=== PATIENT | male | born 1975 | race African-American/Black ===

== ENCOUNTER 2020-12-21 10:25 | Inpatient (IN) ==
--- NOTE | 2020-12-21 11:12 | XRay Report ---
XR chest 1V portable CLINICAL HISTORY: Stroke Like Symptoms COMPARISON STUDY: No previous studies for comparison. FINDINGS: Lung volumes are normal. Note is made of a 3.4 cm left suprahilar density There is no pneum othorax or pleural effusion. Cardiac size is normal. Mediastinal contours are normal. There is no jluis dence for pulmonary edema. IMPRESSION: 3.4 cm left suprahilar density. This likely reflects normal pulmonary vessels. However, nonemergent chest CT is recommended to exclude the less likely possibility of an underlying pulmonary lesion. ACT 112: Positive. There are findings on this exam that require communication between the performing entity and the patient following Patient Test Result Information Act ([place] Act 112) guidelines. Electronically signed by: Kvng Morales M.D. 12/21/2020 11:11 AM
[2020-12-21 11:16] LABS: Basophils # (auto) 0.04 K/uL (0-0.2); Basophils % (auto) 0.8 %; Eosinophils # (auto) 0.17 K/uL (0-0.5); Eosinophils % (auto) 3.2 %; Hematocrit (blood only) 38.8 % (42-52); Hemoglobin 13.1 g/dL (14.0-18.0); Immature Granulocytes # (auto) 0.01 K/uL (0.00-0.02); Immature Granulocytes % (auto) 0.2 %; Lymphocytes # (auto) 1.56 K/uL (1.2-3.4); Lymphocytes % (auto) 29.7 %; Mean Corpuscular Hgb Conc 33.8 g/dL (32-36); Mean Corpuscular Volume 88.8 fL (80-100); Mean Platelet Volume 10.4 fL (7.4-10.4); Monocytes # (auto) 0.29 K/uL (0.11-0.59); Monocytes % (auto) 5.5 %; Neutrophils # (auto) 3.18 K/uL (1.4-6.5); Neutrophils % (auto) 60.6 %; Platelet Count 242 K/uL (130-400); RDW Coefficient of Variation 13.2 % (11.5-14.5); RDW Standard Deviation 42.9 fL (36.4-46.3); Red Blood Count 4.37 M/uL (4.7-6.1); White Blood Count 5.25 K/uL (4.8-10.8)
[2020-12-21 11:26] LABS: Partial Thromboplastin Ratio 0.9; Partial Thromboplastin Time 22.8 Seconds (21.0-31.0); Prothrombin Time 10.1 Seconds (9.0-12.0)
[2020-12-21 11:31] LABS: Alanine Aminotransferase 60 U/L (12-78); Albumin Level 3.9 gm/dl (3.4-5.0); Aspartate Aminotransferase 36 U/L (15-37); BUN Creatinine Ratio 9.6 (10-20); Blood Urea Nitrogen 11 mg/dl (7-18); Calcium 9.5 mg/dl (8.5-10.1); Carbon Dioxide 27 mmol/L (21-32); Chloride 103 mmol/L (98-107); Creatinine Clr Calc Pharmacy 104.1 ml/min; Est GFR (African American) 90.8 ml/min; Est GFR (Non-African American) 78.4 ml/min; Glucose 85 mg/dl (70-99); Magnesium 2.1 mg/dl (1.8-2.4); Potassium 4.2 mmol/L (3.5-5.1); Sodium 137 mmol/L (136-145)
[2020-12-21 11:36] LABS: Albumin Globulin Ratio 0.9 (0.9-2); Alkaline Phosphatase 70 U/L (45-117); Bilirubin,Total 0.7 mg/dl (0.2-1); Globulin 4.1 gm/dl (2.5-4.0); Troponin I < 0.015 ng/ml (0-0.045)
[2020-12-21] MEDS ORDERED: OPTIRAY 350 500ml IV ONE (12:21)
[2020-12-21] MEDS ORDERED: ASPIRIN CHEW 324 MG PO STA (12:36)
--- NOTE | 2020-12-21 12:45 | Electrocardiogram Report ---
Test Reason : Blood Pressure : / mmHG Vent. Rate : 056 BPM Atrial Rate : 056 BPM P-R Int : 184 ms QRS Dur : 086 ms QT Int : 416 ms P-R-T Axes : 080 078 075 degrees QTc Int : 401 ms Sinus bradycardia Otherwise normal ECG When compared with ECG of 04-NOV-2020 16:17, No significant change was found Confirmed by Chang Matthews ([id number]) on 12/21/2020 12:45:12 PM Referred By: REFERRED SELF Confirmed By:Alfonso Matthews
--- NOTE | 2020-12-21 12:55 | CT Scan Report ---
UNENHANCED CT OF THE BRAIN; CT ANGIOGRAM OF THE BRAIN; CT ANGIOGRAM OF THE NECK CLINICAL HISTORY: Strokelike symptoms. COMPARISON STUDY: CT of the brain dated 11/04/2020. TECHNIQUE: Unenhanced axial CT scan of the brain is performed. Subsequently, following the IV adminis tration of 120 of [address] 350, CT angiogram of the head and neck was performed from the aortic arch t o the vertex. Images are reviewed in the axial, sagittal, and coronal planes. 3-D MIPS images are cre ated and assessed. IV contrast was administered without complication. All measurements were calculate d based on NASCET criteria. A dose lowering technique was utilized adhering to the principles of ALA RA. CT DOSE: 1109.62 mGy.cm FINDINGS: Brain parenchyma: There is a large subacute infarct identified in the left MCA territory with mild fagan rrounding edema, predominantly involving the temporal lobe. Focal hyperdense thrombus is suggested wi thin a branch of the left MCA on unenhanced axial image #12. No hemorrhage or midline shift is identi fied. No additional foci of ischemia are identified by CT criteria. There is no evidence of enhancing mass lesion on the angiogram phase images. The ventricles, sulci, and cisterns are normal in configu ration. No extra-axial fluid collection is seen. Thoracic aorta: Visualized portions of the thoracic aorta are normal in caliber. The aortic arch demo nstrates standard 3-vessel anatomy. Right carotid arterial system: The right common carotid artery is widely patent, as are the right int ernal and external carotid arteries. Left carotid arterial system: The left common carotid artery is widely patent, as are the left human resource internship al and external carotid arteries. Vertebral arteries: The vertebral arteries are patent bilaterally noting a right-sided dominance. Subclavian arteries: Widely patent bilaterally. Intracranial vasculature: There are large bilateral posterior communicating arteries. The internal ca rotid arteries are patent at the skull base, as are the bilateral anterior and right middle cerebral arteries the proximal right middle cerebral arteries patent. 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 The remaining branch es of the left middle cervical arteries are patent. The vertebrobasilar system and posterior cerebral arteries are widely patent. The right vertebral artery is dominant. The left vertebral artery is dim inutive. No aneurysm is seen. Jugular veins: Patent bilaterally. Dural sinuses: Patent. Lung apices: Partially visualized upper lobe lung parenchyma appears clear. Soft tissues: The visualized pharyngeal soft tissues are normal in appearance noting angiographic pha se technique. The oropharyngeal airway appears widely patent. The salivary and thyroid glands are nor mal in appearance. No cervical lymphadenopathy is seen. Skeletal structures: The calvarium appears intact. The cervical spine is within normal limits. No lyt ic or blastic lesion is seen. Sinuses and mastoids: There is trace mucosal thickening within the ethmoid sinuses. The remaining par anasal sinuses are clear. The mastoid air cells are well pneumatized. Cerumen is noted in the externa l auditory canals. IMPRESSION: 1. There is a large subacute left MCA territory infarct as above, predominantly involving the tempora l lobe. 2. No hemorrhage or midline shift is identified. 3. No additional foci of acute ischemia are identified by CT criteria. 4. There is thrombosis of a large branch of the left MCA in the left temporal lobe along the sylvian fissure. 5. Otherwise unremarkable CT angiogram of the brain. 6. Unremarkable CT angiogram of the neck. Findings were discussed with Dr. Sidhu in the emergency department at the time of interpretation. ACT 112: Negative or not required by law. Electronically signed by: Scott Ron M.D. 12/21/2020 12:54 PM
--- NOTE | 2020-12-21 13:24 | History & Physical Report ---
Date of Service December 21, 2020 Assessment & Plan (1) CVA (cerebrovascular accident): Large left MCA stroke - Not candidate for therapy as unsure of onset and stroke completed. Known CVA as of - [place] [facility] [place]- supportive care - Repeat MRI brain - Consult neurology placed- reviewed with Dr. Pandya - contreras screen- passed - ECHO- pending - BP will follow - Will add Keppra on for seizure prophylaxis with size of injury as well as unsure of this is what caused him to "fall" or "fall out", either way large injury in temporal lobe - PT/OT - ASA daily - statin daily (2) Abnormal chest xray: Will follow up with CT scan of the chest - 7mm lung nodule noted (3) Pulmonary nodule: as above, ? etiology and history History of Present Illness Primary Care Provider: CARMINA Wei 45 YOM with no known medical history documented. Patient was brought in today after "falling out" this morning, guards are unsure if he lost consciousness or not. The patient had a fall about 2 weeks ago where he hit the right side of his head above his eyebrow, he was subsequently taken to [facility] radiology center and had an MRI done on 12/10/2020. This exam revealed a subacute/early chronic infarct left temporoparietal junction and mild cortical enhancement. Thre is no further record of treatment available. The patient is awake and alert, he is oriented to person and place. He is disoriented to time. His responses are the same and repeating to "just this" or "this and that". He is unable to recall what he did this morning or yesterday. He apparently remains in general population without getting lost or reporting any deficits or needing care. Patient is not a candidate for tPA secondary to time of initial event ~2weeks ago and is not an interventional candidate secondary to completed stroke. Patient will be admitted for further work up, will be started on Keppra 1000mg BID and transition to PO when able. EEG in morning. Aspirin given in the EMD, will continue daily. MRI of the brain will be obtained evaluate ongoing process, CT of the chest to evaluate findings on CXR, telemetry and ECHO for evaluation of embolic risks. Patient is unable to provide any family, medical, or social history. 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 Allergies Allergy/AdvReac Type Severity Reaction Status Date / Time No Known Allergies Allergy Unverified 12/21/20 10:51 Home Medications Medication Instructions Recorded Confirmed Type aspirin 325 mg PO DAILY 12/21/20 12/21/20 History Past Med/Surg History Medical History (Updated 12/22/20 @ 08:44 by Williams Pandya MD) Abnormal chest xray No pertinent past medical history No pertinent past medical history Surgical History (Updated 12/22/20 @ 11:29 by Darvin Du) No pertinent past surgical history Family History (Updated 12/22/20 @ 11:29 by Darvin Du) Other Unknown family medical history Social History (Updated 12/22/20 @ 11:29 by Darvin Du) Smoking Status: Never smoker Hx Alcohol Use: No Hx Substance Use: No (specifically denied cocaine use or other street drugs ) [employer] Required: No Beliefs That Will Affect Care: None Current Living Situation: Other Current Living Situation Comment: Correctional facility Other Information That Helps Us Care for You: No Feels Safe at Home: Yes Safety Concerns: Feels Safe At This Time Assistive Devices: None Review of Systems Review of Systems: REVIEW OF SYSTEMS: Systems reviewed- patient responses are unlikely accurate most of the time. Constitutional: No fever, sweats or chills Eyes: No diplopia, no worsening or blurred vision ENT: normal hearing, no trouble swallowing Respiratory: No cough, sputum, dyspnea at rest or on exertion Cardiovascular: No chest pain, tightness or palpitations Abdomen: No pain, nausea, vomiting, diarrhea or constipation Musculoskeletal:(+) pain to right above eye, No joint pain, calf pain, swelling Neurologic: No weakness, numbness/tingling, or balance problems Psychiatric: No anxiety or depression Skin: No rash or itch Physical Exam Physical Exam: PHYSICAL EXAM: General: awake, alert, no apparent distress Head: Normocephalic, atraumatic ENT: PERRL, EOMI, no pharyngeal exudate, mucous membranes moist Neuro: NIHSS- 6, patient alert to person and place, follows commands, PEERLA denies vision change and peripheral vision appears intact, no facial asymmetry, no limb weakness or ataxia, sensation to left lower leg decreased(patient says right leg for sensation on left leg or does not flinch with pinching), he is unable to say any of the words from the NIHSS, he is unable to articulate the events in the pictures, nor is he able to name any of the objects. These events come out as garble intelligible words or everything is called a vacuum. He is able to write his name and read his name, but is unable to read other written words. Chest: equal rise and fall of the chest, no accessory muscle use, no heaves or thrills, Clear to auscultation, on room air, Cardiac: Regular rate and rhythm, telemetry reviewed, skin warm dry, cap refill <3 seconds, peripheral pulses +2 no JVD, no murmur, no edema GI: NABS x 4 quadrants, soft, nontender to palpation, no rebound, guarding or tenderness : Spontaneously voiding, no pain, no CVA tenderness, Extremities: Normal inspection, no peripheral edema or erythema, calfs nont gene to palpation Psych: Normal mood and affect Skin: no rash or erythema Results & Data Results & Data ([facility]) Vital Signs (Past 12 Hours) Vital Signs Temp Pulse Resp BP Pulse Ox 12/21/20 13:01 72 18 90 12/21/20 13:00 69 23 156/91 H 97 12/21/20 12:44 62 13 99 12/21/20 12:43 61 23 149/90 H 100 12/21/20 12:01 56 L 13 12/21/20 12:00 62 13 128/84 12/21/20 11:31 57 L 16 12/21/20 11:30 56 L 17 125/80 12/21/20 11:06 66 19 12/21/20 11:05 56 L 14 142/95 H 12/21/20 10:33 37.0 C 79 18 136/104 H 99 Laboratory Results Abnormal lab results 12/21/20 12/21/20 12/21/20 Range/Units 11:00 11:00 11:00 RBC 4.37 L (4.7-6.1) M/uL Hgb 13.1 L (14.0-18.0) g/dL Hct 38.8 L (42-52) % BUN/Creatinine Ratio 9.6 L (10-20) POC Glucose 102 H (70-99) mg/dl Globulin 4.1 H (2.5-4.0) gm/dl Diagnostic Findings Chest X-Ray 12/21/20 10:39 XR chest 1V portable CLINICAL HISTORY: Stroke Like Symptoms COMPARISON STUDY: No previous studies for comparison. FINDINGS: Lung volumes are normal. Note is made of a 3.4 cm left suprahilar density There is no pneumothorax or pleural effusion. Cardiac size is normal. Mediastinal contours are normal. There is no evidence for pulmonary edema. IMPRESSION: 3.4 cm left suprahilar density. This likely reflects normal pulmonary vessels. However, nonemergent chest CT is recommended to exclude the less likely possibility of an underlying pulmonary lesion. Electronically signed by: Kvng Morales M.D. 12/21/2020 11:[address] 12/21/20 10:[address] OF THE BRAIN; CT ANGIOGRAM OF THE BRAIN; CT ANGIOGRAM OF THE NECK CLINICAL HISTORY: Strokelike symptoms. COMPARISON STUDY: CT of the brain dated 11/04/2020. TECHNIQUE: Unenhanced axial CT scan of the brain is performed. Subsequently, following the IV administration of 120 of Optiray 350, CT angiogram of the head and neck was performed from the aortic arch to the vertex. Images are reviewed in the axial, sagittal, and coronal planes. 3-D MIPS images are created and assessed. IV contrast was administered without complication. All measurements were calculated based on NASCET criteria. A dose lowering technique was utilized adhering to the principles of ALARA. CT DOSE: 1109.62 mGy.cm FINDINGS: Brain parenchyma: There is a large subacute infarct identified in the left MCA territory with mild surrounding edema, predominantly involving the temporal lobe. Focal hyperdense thrombus is suggested within a branch of the left MCA on unenhanced axial image #12. No hemorrhage or midline shift is identified. No additional foci of ischemia are identified by CT criteria. There is no evidence of enhancing mass lesion on the angiogram phase images. The ventricles, sulci, and cisterns are normal in configuration. No extra-axial fluid collection is seen. Thoracic aorta: Visualized portions of the thoracic aorta are normal in caliber. The aortic arch demonstrates standard 3-vessel anatomy. Right carotid arterial system: The right common carotid artery is widely patent, as are the right internal and external carotid arteries. Left carotid arterial system: The left common carotid artery is widely patent, as are the left internal and external carotid arteries. Vertebral arteries: The vertebral arteries are patent bilaterally noting a right-sided dominance. Subclavian arteries: Widely patent bilaterally. Intracranial vasculature: There are large bilateral posterior communicating arteries. The internal carotid arteries are patent at the skull base, as are the bilateral anterior and right middle cerebral arteries the proximal right middle cerebral arteries patent. 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 The remaining branches of the left middle cervical arteries are patent. The vertebrobasilar system and posterior cerebral arteries are widely patent. The right vertebral artery is dominant. The left vertebral artery is diminutive. No aneurysm is seen. Jugular veins: Patent bilaterally. Dural sinuses: Patent. Lung apices: Partially visualized upper lobe lung parenchyma appears clear. Soft tissues: The visualized pharyngeal soft tissues are normal in appearance noting angiographic phase technique. The oropharyngeal airway appears widely patent. The salivary and thyroid glands are normal in appearance. No cervical lymphadenopathy is seen. Skeletal structures: The calvarium appears intact. The cervical spine is within normal limits. No lytic or blastic lesion is seen. Sinuses and mastoids: There is trace mucosal thickening within the ethmoid sinuses. The remaining paranasal sinuses are clear. The mastoid air cells are well pneumatized. Cerumen is noted in the external auditory canals. IMPRESSION: 1. There is a large subacute left MCA territory infarct as above, predominantly involving the temporal lobe. 2. No hemorrhage or midline shift is identified. 3. No additional foci of acute ischemia are identified by CT criteria. 4. There is thrombosis of a large branch of the left MCA in the left temporal lobe along the sylvian fissure. 5. Otherwise unremarkable CT angiogram of the brain. 6. Unremarkable CT angiogram of the neck. Findings were discussed with Dr. Sidhu in the emergency department at the time of interpretation. Electronically signed by: Scott Ron M.D. 12/21/2020 12:54 PM Head CTA 12/21/20 10:[address] OF THE BRAIN; CT ANGIOGRAM OF THE BRAIN; CT ANGIOGRAM OF THE NECK CLINICAL HISTORY: Strokelike symptoms. COMPARISON STUDY: CT of the brain dated 11/04/2020. TECHNIQUE: Unenhanced axial CT scan of the brain is performed. Subsequently, following the IV administration of 120 of Optiray 350, CT angiogram of the head and neck was performed from the aortic arch to the vertex. Images are reviewed in the axial, sagittal, and coronal planes. 3-D MIPS images are created and assessed. IV contrast was administered without complication. All measurements were calculated based on NASCET criteria. A dose lowering technique was utilized adhering to the principles of ALARA. CT DOSE: 1109.62 mGy.cm FINDINGS: Brain parenchyma: There is a large subacute infarct identified in the left MCA territory with mild surrounding edema, predominantly involving the temporal lobe. Focal hyperdense thrombus is suggested within a branch of the left MCA on unenhanced axial image #12. No hemorrhage or midline shift is identified. No additional foci of ischemia are identified by CT criteria. There is no evidence of enhancing mass lesion on the angiogram phase images. The ventricles, sulci, and cisterns are normal in configuration. No extra-axial fluid collection is seen. Thoracic aorta: Visualized portions of the thoracic aorta are normal in caliber. The aortic arch demonstrates standard 3-vessel anatomy. Right carotid arterial system: The right common carotid artery is widely patent, as are the right internal and external carotid arteries. Left carotid arterial system: The left common carotid artery is widely patent, as are the left internal and external carotid arteries. Vertebral arteries: The vertebral arteries are patent bilaterally noting a right-sided dominance. Subclavian arteries: Widely patent bilaterally. Intracranial vasculature: There are large bilateral posterior communicating arteries. The internal carotid arteries are patent at the skull base, as are the bilateral anterior and right middle cerebral arteries the proximal right middle cerebral arteries patent. 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 The remaining branches of the left middle cervical arteries are patent. The vertebrobasilar system and posterior cerebral arteries are widely patent. The right vertebral artery is dominant. The left vertebral artery is diminutive. No aneurysm is seen. Jugular veins: Patent bilaterally. Dural sinuses: Patent. Lung apices: Partially visualized upper lobe lung parenchyma appears clear. Soft tissues: The visualized pharyngeal soft tissues are normal in appearance noting angiographic phase technique. The oropharyngeal airway appears widely patent. The salivary and thyroid glands are normal in appearance. No cervical lymphadenopathy is seen. Skeletal structures: The calvarium appears intact. The cervical spine is within normal limits. No lytic or blastic lesion is seen. Sinuses and mastoids: There is trace mucosal thickening within the ethmoid sinuses. The remaining paranasal sinuses are clear. The mastoid air cells are well pneumatized. Cerumen is noted in the external auditory canals. IMPRESSION: 1. There is a large subacute left MCA territory infarct as above, predominantly involving the temporal lobe. 2. No hemorrhage or midline shift is identified. 3. No additional foci of acute ischemia are identified by CT criteria. 4. There is thrombosis of a large branch of the left MCA in the left temporal lobe along the sylvian fissure. 5. Otherwise unremarkable CT angiogram of the brain. 6. Unremarkable CT angiogram of the neck. Findings were discussed with Dr. Sidhu in the emergency department at the time of interpretation. ACT 112: Negative or not required by law. Electronically signed by: Scott Ron M.D. 12/21/2020 12:54 PM Neck CTA 12/21/20 10:[address] OF THE BRAIN; CT ANGIOGRAM OF THE BRAIN; CT ANGIOGRAM OF THE NECK CLINICAL HISTORY: Strokelike symptoms. COMPARISON STUDY: CT of the brain dated 11/04/2020. TECHNIQUE: Unenhanced axial CT scan of the brain is performed. Subsequently, following the IV administration of 120 of Optiray 350, CT angiogram of the head and neck was performed from the aortic arch to the vertex. Images are reviewed in the axial, sagittal, and coronal planes. 3-D MIPS images are created and assessed. IV contrast was administered without complication. All measurements were calculated based on NASCET criteria. A dose lowering technique was utilized adhering to the principles of ALARA. CT DOSE: 1109.62 mGy.cm FINDINGS: Brain parenchyma: There is a large subacute infarct identified in the left MCA territory with mild surrounding edema, predominantly involving the temporal lobe. Focal hyperdense thrombus is suggested within a branch of the left MCA on unenhanced axial image #12. No hemorrhage or midline shift is identified. No additional foci of ischemia are identified by CT criteria. There is no evidence of enhancing mass lesion on the angiogram phase images. The ventricles, sulci, and cisterns are normal in configuration. No extra-axial fluid collection is seen. Thoracic aorta: Visualized portions of the thoracic aorta are normal in caliber. The aortic arch demonstrates standard 3-vessel anatomy. Right carotid arterial system: The right common carotid artery is widely patent, as are the right internal and external carotid arteries. Left carotid arterial system: The left common carotid artery is widely patent, as are the left internal and external carotid arteries. Vertebral arteries: The vertebral arteries are patent bilaterally noting a right-sided dominance. Subclavian arteries: Widely patent bilaterally. Intracranial vasculature: There are large bilateral posterior communicating arteries. The internal carotid arteries are patent at the skull base, as are the bilateral anterior and right middle cerebral arteries the proximal right middle cerebral arteries patent. 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 The remaining branches of the left middle cervical arteries are patent. The vertebrobasilar system and posterior cerebral arteries are widely patent. The right vertebral artery is dominant. The left vertebral artery is diminutive. No aneurysm is seen. Jugular veins: Patent bilaterally. Dural sinuses: Patent. Lung apices: Partially visualized upper lobe lung parenchyma appears clear. Soft tissues: The visualized pharyngeal soft tissues are normal in appearance noting angiographic phase technique. The oropharyngeal airway appears widely patent. The salivary and thyroid glands are normal in appearance. No cervical lymphadenopathy is seen. Skeletal structures: The calvarium appears intact. The cervical spine is within normal limits. No lytic or blastic lesion is seen. Sinuses and mastoids: There is trace mucosal thickening within the ethmoid sinuses. The remaining paranasal sinuses are clear. The mastoid air cells are well pneumatized. Cerumen is noted in the external auditory canals. IMPRESSION: 1. There is a large subacute left MCA territory infarct as above, predominantly involving the temporal lobe. 2. No hemorrhage or midline shift is identified. 3. No additional foci of acute ischemia are identified by CT criteria. 4. There is thrombosis of a large branch of the left MCA in the left temporal lobe along the sylvian fissure. 5. Otherwise unremarkable CT angiogram of the brain. 6. Unremarkable CT angiogram of the neck. Findings were discussed with Dr. Sidhu in the emergency department at the time of interpretation. Electronically signed by: Scott Ron M.D. 12/21/2020 12:54 PM Brain MRI 12/21/20 15:34 MRI OF THE BRAIN WITHOUT CONTRAST CLINICAL HISTORY: L MCA territory CVA COMPARISON STUDY: None. FINDINGS: Sagittal T1, axial diffusion, proton density and T2 weighted axial, coronal FLAIR, and axial T1-weighted images were acquired. There is large heterogeneous lesion involving left frontal and temporal region which shows no evidence of restricted diffusion, no mass effect on adjacent brain structures and curvilinear areas of high T1 signal and cortical thinning. Axial diffusion-weighted images reveal no evidence of acute or subacute infarction. Multiple areas of increased signal on DWI sequence also shows high signal on ACT map representing shine through phenomenon. There is no evidence of ventricular dilatation. Orbits and visualized paranasal sinuses are unremarkable. IMPRESSION: 1. No evidence of restricted diffusion to suggest acute ischemia/infarct. 2. Large heterogeneous area of altered T1 and T2 signal is seen within left frontal and occipital lobe with associated cortical atrophy and curvilinear areas of increased T1 signal likely representing sequela from prior/recent infarct/hemorrhage. Neoplastic etiology/mass lesion is less likely due to absence of the mass effect, however if there is clinical concern for metastatic/neoplastic lesion, follow-up evaluation might be considered. Electronically signed by: Roxanne Peterson DO 12/21/2020 5:[address] 12/21/20 15:34 CT chest diagnostic wo con CLINICAL HISTORY: evaluate hypodensity to left chest COMPARISON STUDY: No previous studies for comparison. CT DOSE: 629.12 mGycm TECHNIQUE: CT of the thorax was performed from the thoracic inlet to the lung bases. Images are reviewed in the axial, sagittal, and coronal planes. IV contrast was not administered for this examination. A dose lowering technique was utilized adhering to the principles of ALARA. FINDINGS: There is no axillary, supra clavicle or internal mammary lymphadenopathy seen. Mediastinal lymph nodes are not enlarged. Minimal soft tissue prominence and 0.7 cm nodule within anterior mediastinum could represent thymic remnants versus other etiology (/101) Thyroid: Imaged portions of the thyroid gland are normal in appearance. Thoracic aorta: The thoracic aorta is normal in course and caliber, noting standard 3 vessel arch anatomy. Heart: The heart is normal in size and configuration, without pericardial effusion. Lungs and pleural spaces: Tracheobronchial tree is patent. No infiltrates or consolidative lesions are seen. No pleural effusion demonstrated. -7 mm pulmonary nodule is seen adjacent to the major fissure on the left (4/157) Upper abdomen: Partially visualized upper abdominal viscera is within normal limits. Skeletal structures: Minimal degenerative changes of the spine. IMPRESSION: 1. No infiltrates or consolidative lesions are seen. 2. 7 mm pulmonary nodule adjacent to the left major fissure. Short-term follow- up in 6 months is recommended per Fleischner Society guidelines. 3. Soft tissue/nodular appearance within the anterior mediastinum, most likely representing thymic remnant, however other etiology is also possible. Please correlate above-mentioned findings was prior history of thymic/anterior mediastinal abnormalities. Attention on follow-up imaging. Please refer to below summary of Fleischner criteria recommendations for follow- up of incidental CT nodules (Kamila Queen, Guidelines for management of small pulmonary nodules detected on CT scans: A statement from the Fleischner Society, Radiology 237: [phone].) SOLID NODULES Solitary nodule size: <6 mm * low risk patients: no follow-up needed * high risk patients: optional CT at 12 months Solitary nodule size: 6-8 mm * low risk patients: follow-up at 6-12 months, then consider further follow-up at 18-24 months * high risk patients: initial follow-up CT at 6-12 months and then at 18-24 months if no change Solitary nodule size: >8 mm * either low or high risk patients - consider follow-up CT at 3 months, and/or CT-PET, and/or biopsy Multiple nodules size: <6 mm * low risk patients: no routine follow-up * high risk patients: optional CT at 12 months Multiple nodules size: 6-8 mm * low risk patients: follow-up at 3-6 months, then consider further follow-up at 18-24 months * high risk patients: follow-up at 3-6 months, then at 18-24 months if no change Multiple nodules size: >8 mm * low risk patients: follow-up at 3-6 months, then consider further follow-up at 18-24 months * high risk patients: follow-up at 3-6 months, then at 18-24 months if no change Note: newly detected indeterminate nodule in persons 35 years of age or older. * low risk patients: minimal or absent history of smoking and/or other known risk factors * high risk patients: history of smoking or of other known risk factors (e.g. first degree relative with lung cancer, or exposure to asbestos, radon, uranium) * if a nodule up to 8 mm is partly solid or is ground glass further follow-up is required after 24 months to exclude possible slow growing adenocarcinoma ([facility]NAH) SUBSOLID NODULES Solitary pure ground-glass nodule * nodule size <6 mm - no CT follow-up required * nodule size >=6 mm - follow-up CT at 6-12 months, then every 2 years until 5 years Solitary part-solid nodule * nodule size <6 mm - no CT follow-up required * nodule size >=6 mm - follow-up CT at 3-6 months. If unchanged, and solid component remains <6 mm, then annual follow-up for 5 years Multiple subsolid nodules * nodule size <6 mm - follow-up CT at 3-6 months, consider further follow-up at 2 and 4 years if stable * nodule size >=6 mm - follow-up CT at 3-6 months, subsequent management based on the most suspicious nodule(s) Electronically signed by: Roxanne Peterson DO 12/21/2020 4:52 PM Medications Administered Sodium Chloride (Nss 1000ml) 1,000 mls @ 100 mls/hr IV .Q10H [facility] Stop: 01/20/21 15:33 Last Admin: 12/21/20 17:31 Dose: 100 mls/hr Documented by: [id number] Levetiracetam 1,000 mg/ Sodium (Chloride) 110 mls @ 440 mls/hr IV Q12 [facility] Stop: 01/20/21 20:59 Last Infusion: 12/21/20 20:04 Dose: 0 mls/hr Documented by: [id number] Admin: 12/21/20 19:38 Dose: 440 mls/hr Documented by: [id number] Discontinued Medications Aspirin (Aspirin Chew 324 Mg) 324 mg PO NOW STA Stop: 12/21/20 12:37 Last Admin: 12/21/20 12:47 Dose: 324 mg Documented by: [id number] Ioversol (Optiray 350 500ml) 120 ml IV ONCE ONE Stop: 12/21/20 12:22 Last Admin: 12/21/20 12:22 Dose: 120 ml Documented by: [id number] Code Status & VTE Plan Code Status CODE: FULL VTE: SCD's, Lovenox 40mg SQ daily VTE Prophylaxis Plan VTE Prophylaxis will be ordered: Yes Supervising Physician Co-Signing Physician Notes Attending Attestation & Admit Note - Pt seen/examined, chart reviewed, admission care plan d/w LAM Baker. I agree w/ the enciso components of his documentation. 45yo AA male - no PMH - presents from [facility] after being found on the ground in the cell block. Unwitnessed, therefore there is uncertainty if he passed out, had a seizure, etc. Patient was confused during the visit - stated it was March 02. He was a poor historian. Did state that 2 weeks ago when he had his MRI he also passed out then. States he "gets a pain there" (points to his right supraorbital region) and then "goes blank." He cannot elaborate further. He did have the same pain over the right eye again today. He does have a laceration above the right eye with sutures in place - uncertain where or when this was repaired. MRI head from 611 MRI performed on 12/10/20 showed a left sided frontal-temporal stroke. it appeared subacute or chronic. CTA head/neck today shows left-sided MCA thrombus. The guards who were present at bedside today state he has been confused in the ER today. They also saw him 2 weeks ago when he needed his MRI brain and they confirm he was confused/lethargic at that time. PMH/PSH/allergies/meds/sochx/famhx - reviewed gen - NAD head - tiny lac supraorbital region on right with intact sutures eyes - no nystagmus mouth - ?tongue bite rani, mid-tongue on right heart - RRR, s1 s2 lungs - CTA b/l abd - soft neuro - hyper-reflexic TIMOTHY ORTIZ wnl; right leg and left leg reflexes 2+; mixed aphasia - difficulty following commands, some expressive aphasia as well; no facial droop; strength 5/5 x 4 exts labs reviewed imaging reviewed A/P: 1. syncope vs seizure; favor latter. If seizure is present it would be secondary to his left-sided fronto-temporal stroke. Keppra BID prophylactically. EEG. Neuro consult. 2. subacute vs chronic left-sided MCA territory stroke - embolic?? Tele. Echo. Neuro, PT, OT, speech consults. asa/statin. lipids. If w/u is negative - consider 30-day event monitor or loop recorder. Consider hypercoagulable w/u. Also had J [employer] COVID vaccine recently - could this have contributed to stroke ?? 3. pulmonary nodule - CT chest, r/o lung ca. If a mass is present that could have set him up for stroke due to hypercoagulable state. This is a very unusual case. Darvin Du MD PG Care Time/CCT Total # of Minutes Spent Total Time Spent with Patient: Total time spent is greater than 50% in coordination of care (as documented) at patient's floor/unit and/or counseling patient: Coding Level of Care Code 23869 Initial Inpt Care Lvl 3 Diagnoses CVA (cerebrovascular accident) I63.312 CVA mechanism: thrombosis Laterality of affected vessel: left Precerebral and cerebral artery: middle cerebral artery Abnormal chest xray R93.89 Pulmonary nodule R91.1 (1) CVA (cerebrovascular accident) CVA mechanism: thrombosis Laterality of affected vessel: left Precerebral and cerebral artery: middle cerebral artery Qualified Code(s): I63.312 - Cerebral infarction due to thrombosis of left middle cerebral artery
[2020-12-21] MEDS ORDERED: levETIRAcetam 1,000 MG in 0.9 % SODIUM CHLORIDE 100 ML IV ONE (15:00)
[2020-12-21] MEDS ORDERED: PHARMACIST DISCHARGE MED REC CONSULT PRN (15:34)
[2020-12-21] MEDS ORDERED: ONDANSETRON INJ 2 MG/ML 2 ML VIAL IV PRN (15:34)
--- NOTE | 2020-12-21 16:53 | CT Scan Report ---
CT chest diagnostic wo con CLINICAL HISTORY: evaluate hypodensity to left chest COMPARISON STUDY: No previous studies for comparison. CT DOSE: 629.12 mGycm TECHNIQUE: CT of the thorax was performed from the thoracic inlet to the lung bases. Images are revi ewed in the axial, sagittal, and coronal planes. IV contrast was not administered for this examinatio n. A dose lowering technique was utilized adhering to the principles of ALARA. FINDINGS: There is no axillary, supra clavicle or internal mammary lymphadenopathy seen. Mediastinal lymph node s are not enlarged. Minimal soft tissue prominence and 0.7 cm nodule within anterior mediastinum could represent thymic r emnants versus other etiology (4/101) Thyroid: Imaged portions of the thyroid gland are normal in appearance. Thoracic aorta: The thoracic aorta is normal in course and caliber, noting standard 3 vessel arch ashok susan. Heart: The heart is normal in size and configuration, without pericardial effusion. Lungs and pleural spaces: Tracheobronchial tree is patent. No infiltrates or consolidative lesions are seen. No pleural effusion demonstrated. -7 mm pulmonary nodule is seen adjacent to the major fissure on the left (4/157) Upper abdomen: Partially visualized upper abdominal viscera is within normal limits. Skeletal structures: Minimal degenerative changes of the spine. IMPRESSION: 1. No infiltrates or consolidative lesions are seen. 2. 7 mm pulmonary nodule adjacent to the left major fissure. Short-term follow-up in 6 months is rec ommended per Fleischner Society guidelines. 3. Soft tissue/nodular appearance within the anterior mediastinum, most likely representing thymic r emnant, however other etiology is also possible. Please correlate above-mentioned findings was prior history of thymic/anterior mediastinal abnormalities. Attention on follow-up imaging. Please refer to below summary of Fleischner criteria recommendations for follow-up of incidental CT n odules (Kamila Queen, Guidelines for management of small pulmonary nodules detected on CT scans: A sta tement from the Fleischner Society, Radiology 237: [phone].) SOLID NODULES Solitary nodule size: <6 mm * low risk patients: no follow-up needed * high risk patients: optional CT at 12 months Solitary nodule size: 6-8 mm * low risk patients: follow-up at 6-12 months, then consider further follow-up at 18-24 months * high risk patients: initial follow-up CT at 6-12 months and then at 18-24 months if no change Solitary nodule size: >8 mm * either low or high risk patients - consider follow-up CT at 3 months, and/or CT-PET, and/or biopsy Multiple nodules size: <6 mm * low risk patients: no routine follow-up * high risk patients: optional CT at 12 months Multiple nodules size: 6-8 mm * low risk patients: follow-up at 3-6 months, then consider further follow-up at 18-24 months * high risk patients: follow-up at 3-6 months, then at 18-24 months if no change Multiple nodules size: >8 mm * low risk patients: follow-up at 3-6 months, then consider further follow-up at 18-24 months * high risk patients: follow-up at 3-6 months, then at 18-24 months if no change Note: newly detected indeterminate nodule in persons 35 years of age or older. * low risk patients: minimal or absent history of smoking and/or other known risk factors * high risk patients: history of smoking or of other known risk factors (e.g. first degree relative with lung cancer, or exposure to asbestos, radon, uranium) * if a nodule up to 8 mm is partly solid or is ground glass further follow-up is required after 24 m onths to exclude possible slow growing adenocarcinoma (SUSANNAH) SUBSOLID NODULES Solitary pure ground-glass nodule * nodule size <6 mm - no CT follow-up required * nodule size >=6 mm - follow-up CT at 6-12 months, then every 2 years until 5 years Solitary part-solid nodule * nodule size <6 mm - no CT follow-up required * nodule size >=6 mm - follow-up CT at 3-6 months. If unchanged, and solid component remains <6 mm, then annual follow-up for 5 years Multiple subsolid nodules * nodule size <6 mm - follow-up CT at 3-6 months, consider further follow-up at 2 and 4 years if sta ble * nodule size >=6 mm - follow-up CT at 3-6 months, subsequent management based on the most suspiciou s nodule(s) ACT 112: Positive. There are findings on this exam that require communication between the performing entity and the patient following Patient Test Result Information Act ([place] Act 112) guidelines. The above report was generated using voice recognition software. It may contain grammatical, syntax o r spelling errors. Electronically signed by: Roxanne Peterson DO 12/21/2020 4:52 PM
[2020-12-21] MEDS: SODIUM CHLORIDE 0.9% 1000ML 1,000 ML IV SCH (17:31)
--- NOTE | 2020-12-21 17:48 | Magnetic Resonance Report ---
MRI OF THE BRAIN WITHOUT CONTRAST CLINICAL HISTORY: L MCA territory CVA COMPARISON STUDY: None. FINDINGS: Sagittal T1, axial diffusion, proton density and T2 weighted axial, coronal FLAIR, and axial T1-weigh reji images were acquired. There is large heterogeneous lesion involving left frontal and temporal region which shows no evidenc e of restricted diffusion, no mass effect on adjacent brain structures and curvilinear areas of high T1 signal and cortical thinning. Axial diffusion-weighted images reveal no evidence of acute or subacute infarction. Multiple areas of increased signal on DWI sequence also shows high signal on ACT map representing shine through phenom enon. There is no evidence of ventricular dilatation. Orbits and visualized paranasal sinuses are unremarkable. IMPRESSION: 1. No evidence of restricted diffusion to suggest acute ischemia/infarct. 2. Large heterogeneous area of altered T1 and T2 signal is seen within left frontal and occipital lo be with associated cortical atrophy and curvilinear areas of increased T1 signal likely representing sequela from prior/recent infarct/hemorrhage. Neoplastic etiology/mass lesion is less likely due to a bsence of the mass effect, however if there is clinical concern for metastatic/neoplastic lesion, fol low-up evaluation might be considered. ACT 112: Negative or not required by law. The above report was generated using voice recognition software. It may contain grammatical, syntax o r spelling errors. Electronically signed by: Roxanne Peterson DO 12/21/2020 5:46 PM
[2020-12-21] MEDS: levETIRAcetam 1,000 MG in 0.9 % SODIUM CHLORIDE 100 ML IV SCH (19:38)
[2020-12-22] MEDS: SODIUM CHLORIDE 0.9% 1000ML 1,000 ML IV SCH ×2 (02:47→12:45)
[2020-12-22 07:13] LABS: Basophils # (auto) 0.03 K/uL (0-0.2); Basophils % (auto) 0.7 %; Eosinophils # (auto) 0.17 K/uL (0-0.5); Eosinophils % (auto) 3.7 %; Hematocrit (blood only) 37.9 % (42-52); Hemoglobin 12.7 g/dL (14.0-18.0); Lymphocytes # (auto) 1.47 K/uL (1.2-3.4); Lymphocytes % (auto) 32.2 %; Mean Corpuscular Hemoglobin 29.5 pg (25-34); Mean Corpuscular Hgb Conc 33.5 g/dL (32-36); Mean Corpuscular Volume 88.1 fL (80-100); Mean Platelet Volume 10.3 fL (7.4-10.4); Monocytes # (auto) 0.37 K/uL (0.11-0.59); Monocytes % (auto) 8.1 %; Neutrophils # (auto) 2.53 K/uL (1.4-6.5); Neutrophils % (auto) 55.3 %; Platelet Count 231 K/uL (130-400); RDW Coefficient of Variation 13.1 % (11.5-14.5); RDW Standard Deviation 42.1 fL (36.4-46.3); White Blood Count 4.57 K/uL (4.8-10.8)
[2020-12-22] MEDS: levETIRAcetam 1,000 MG in 0.9 % SODIUM CHLORIDE 100 ML IV SCH (07:35)
[2020-12-22] MEDS: ENOXAPARIN INJ 40 MG/0.4 ML SYR SQ SCH (07:35)
[2020-12-22] MEDS: ASPIRIN 81 MG ECTAB PO SCH (07:36)
[2020-12-22] MEDS: ATORVASTATIN 40 MG TAB PO SCH (07:36)
[2020-12-22 07:47] LABS: BUN Creatinine Ratio 13.5 (10-20); Calcium 8.9 mg/dl (8.5-10.1); Creatinine Clr Calc Pharmacy 105.4 ml/min; Est GFR (African American) 108.1 ml/min; Est GFR (Non-African American) 93.2 ml/min; Potassium 4.3 mmol/L (3.5-5.1)
[2020-12-22 08:11] LABS: Estimated Average Glucose 117 mg/dl; Hemoglobin A1C 5.7 % (4.5-5.6)
--- NOTE | 2020-12-22 08:44 | Electroencephalogram ---
EEG Procedure Note Date of Service December 22, 2020 Start / End Times Start Time: 8 AM End Time: 8:20 AM Referring Physician Darvin Du History Loss of consciousness, syncope, possible seizure, left MCA stroke Home Medication List Medication Instructions Recorded Confirmed Type aspirin 325 mg PO DAILY 12/21/20 12/21/20 History Inpatient Medication List Aspirin (Aspirin 81 Mg Ectab) 81 mg PO [facility] Stop: 01/21/21 08:59 Last Admin: 12/22/20 07:36 Dose: 81 mg Documented by: [id number] Atorvastatin Calcium (Atorvastatin 40 Mg Tab) 40 mg PO [facility] Stop: 01/21/21 08:59 Last Admin: 12/22/20 07:36 Dose: 40 mg Documented by: [id number] Enoxaparin Sodium (Enoxaparin Inj 40 Mg/0.4 Ml Syr) 40 mg SQ [facility] Stop: 01/21/21 08:59 Last Admin: 12/22/20 07:35 Dose: 40 mg Documented by: [id number] Sodium Chloride (Nss 1000ml) 1,000 mls @ 100 mls/hr IV .Q10H [facility] Stop: 01/20/21 15:33 Last Admin: 12/22/20 02:47 Dose: 100 mls/hr Documented by: [id number] Infusion: 12/22/20 02:47 Dose: 100 mls/hr Documented by: [id number] Admin: 12/21/20 17:31 Dose: 100 mls/hr Documented by: [id number] Levetiracetam 1,000 mg/ Sodium (Chloride) 110 mls @ 440 mls/hr IV Q12 [facility] Stop: 01/20/21 20:59 Last Infusion: 12/22/20 07:53 Dose: 0 mls/hr Documented by: [id number] Admin: 12/22/20 07:35 Dose: 440 mls/hr Documented by: [id number] Infusion: 12/21/20 20:04 Dose: 0 mls/hr Documented by: [id number] Admin: 12/21/20 19:38 Dose: 440 mls/hr Documented by: [id number] Discontinued Medications Aspirin (Aspirin Chew 324 Mg) 324 mg PO NOW STA Stop: 12/21/20 12:37 Last Admin: 12/21/20 12:47 Dose: 324 mg Documented by: [id number] Ioversol (Optiray 350 500ml) 120 ml IV ONCE ONE Stop: 12/21/20 12:22 Last Admin: 12/21/20 12:22 Dose: 120 ml Documented by: [id number] Description This is a 21 electrode EEG with a single channel dedicated to limited EKG. The electrodes were placed in accordance with the International 10-20 system. There is a posterior dominant rhythm of 9 Hz which is symmetrically distributed and attenuates with eye opening. There is a normal anterior to posterior organization. Photic stimulation is unremarkable. Hyperventilation is not performed. There is a symmetric frontal beta rhythm. There is no focal or lateralized slowing. No epileptiform abnormalities observed. Interpretation Normal-appearing awake/drowsy EEG. A normal EEG does not completely exclude a diagnosis of epilepsy. Further clinical correlation may be needed. [facility] EEG Procedure Codes Indication for Procedure (1) CVA (cerebrovascular accident): (2) Seizure-like activity: Neurology Neurology: 22060 EEG include record awake & drowsy
--- NOTE | 2020-12-22 10:01 | Neurology Consultation ---
Date of Consultation December 22, 2020 Assessment & Plan (1) CVA (cerebrovascular accident): (2) Seizure-like activity: Chronic appearing left MCA/perisylvian infarct with evidence of prior hemorrhage, laminar necrosis on noncontrast brain MRI. No associated mass- effect, underlying neoplasm considered less likely. Does have evidence of thrombosis of a large branch of the left MCA in the left temporal lobe along the sylvian fissure. CT angiography of the head and neck are otherwise unrema rkable. Underlying stroke etiology unclear although cardioembolism seems probable. Coagulopathy not excluded. Follow-up with results of transthoracic echocardiogram. Consider obtaining a transesophageal echocardiogram if necessary. (May be useful to further evaluate for PFO, depending on transthoracic echocardiogram results.) Would recommend a hypercoagulable evaluation as well as screening for sickle cell disease. Agree with daily low-dose aspirin and atorvastatin as ordered. Would recommend obtaining a gadolinium enhanced brain MRI in 1 month to ensure stability. Furthermore, it is unclear if this patient has been having seizures. Events unwitnessed. Normal EEG. However, does have a relatively large left perisylvian infarct which could increase risk for seizure disorder, potentially focal onset with secondary generalization. Patient does not appear to have a Timothy's paralysis although he does exhibit a mild to moderate mixed aphasia which could be either chronic or postictal. If his speech difficulty is postictal I would expect some improvement over the next 24 to 48 hours. As patient's EEG is normal and patient has not had any witnessed seizure-like activity, would reduce dosage of Keppra to 500 mg twice daily. May discontinue IV Keppra and utilize tablets. History of Present Illness Reason for Consultation: Stroke, seizure? Requesting Physician: aDrvin Du MD Attending Physician: Danyel Flores MD History of Present Illness The patient is a 45-year-old male prisoner who has been admitted to the [facility] for further evaluation and management of a subacute left MCA stroke. He had presented to the emergency department on November 04, 2020 after a fall with associated change in mental status. He may have had a syncopal episode at that time although exact events were not really clear. No significant arrhythmias. A CT of the head at that time was unremarkable. He presented again to the emergency department yesterday after another apparent fall, unclear if there was associated loss of consciousness although patient recalls feeling lightheaded or dizzy prior to the episode. He does have a mild to moderate mixed aphasia and is a somewhat unreliable historian. He was diagnosed with a chronic appearing left MCA territory infarct on an outside MRI. It is unclear if he had further evaluation although appears to be taking daily full dose aspirin. He has undergone additional evaluation during this most recent admission to the Medical Center including CT of the head, CT angiography of the head and neck, brain MRI, and EEG. Imaging suggests a chronic left MCA territory infarct with evidence of prior hemorrhage, no mass-effect. Imaging not highly suggestive of acute infarct. Does have evidence of thrombosis within a large branch of the left MCA territory within the temporal lobe along the sylvian fissure. No significant stenosis or vascular lesion within the neck. Again, the patient does exhibit a mild to moderate mixed aphasia and he is an unreliable historian. He does not have an obvious hemiparesis although may have a subtle right facial droop. He has not had any observed seizures. Family history unable to obtain reliable information from patient due to his aphasia. Allergies Allergy/AdvReac Type Severity Reaction Status Date / Time No Known Allergies Allergy Unverified 12/21/20 10:51 Home Medications Medication Instructions Recorded Confirmed Type aspirin 325 mg PO DAILY 12/21/20 12/21/20 History Patient History Medical History Abnormal chest xray No pertinent past medical history No pertinent past medical history Social History (Updated 11/04/20 @ 15:46 by Danyel August MD) Smoking Status: Never smoker Hx Alcohol Use: No Corporate Wellness Coordinator Required: No Beliefs That Will Affect Care: None Current Living Situation: Other Current Living Situation Comment: Correctional facility Other Information That Helps Us Care for You: No Feels Safe at Home: Yes Safety Concerns: Feels Safe At This Time Assistive Devices: None Review of Systems Review of Systems: Unable due to aphasia Exam (Neuro) Constitutional: well developed and well nourished; no acute distress Eyes: normal visual castillo by confrontation, PERRL, normal accommodation and EOM intact bilaterally; no fundoscopic abnormality, no nystagmus and no papilledema Cardiovascular: Vessels: normal carotid upstroke; no carotid bruit Neurologic: Oriented to:: Person, Place and Time Memory: Short Term Intact (Assessment limited due to aphasia) and Remote Intact Attention: Span Intact and Concentration Intact Language: Repeating Phrases; negative Naming Objects (Limited ability to name objects although was able to name pen correctly.) Speech Fluency: Dysfluency (Limited spontaneous speech.) and Limited Comprehension; negative Dysarthria Speech Aphasia: Aphasia (Has elements of expressive and receptive aphasia mild to moderate severity. Also exhibits finger anomia and acalculia.) Fund of Knowledge: Past History and Vocabulary; negative Current Events Cranial Nerves: Normal II (Visual castillo full to conf rontation, visual acuity normal), III, IV, (Pupils equal round reactive to light and accommodation, eye movements normal), V (Facial sensation intact), VIII (Hearing intact), IX, X (Palate elevates to midline), XI (Shoulder shrug intact) and XII (Tongue protrudes to midline); Abnorm VII (There is slight flattening of the right nasolabial fold) Motor Strength: Normal Lower Extremities and Normal Upper Extremities; negative Pronator Drift Motor Tone: Normal Lower Extremities and Normal Upper Extremities Muscle Bulk/Involuntary Movements: No Involuntary Movements; negative Muscle Atrophy Sensation: Light Touch Intact, Pain/Temperature Intact, Vibration Intact and Proprioception Intact Coordination: Normal; negative Limited Balance, Dysdiadochokinesia, Finger-Nose Abnormal and Heel-Escalante Abnormal Deep Tendon Reflexes: Rt Triceps: 2+, Lt Triceps: 2+, Rt Biceps: 2+, Lt Biceps: 2+, Rt Brachioradialis: 2+, Lt Brachioradialis: 2+, Rt Patellar: 2+, Lt Patellar: 2+, Rt Ankle: 2+ and Lt Ankle: 2+ Special Tests: negative Babinski Present Details: Gait not tested in context of patient's neurological status. Results & Data ([facility]) Vital Signs (Past 12 Hours) Vital Signs Temp Pulse Pulse Resp BP Pulse Ox 12/22/20 07:14 36.7 C 60 19 124/83 99 12/22/20 03:14 36.7 C 58 L 18 132/74 96 12/21/20 23:55 59 L 12/21/20 22:51 36.4 C L 56 L 18 139/79 99 Laboratory Results WBC 4.57, hemoglobin 12.7, hematocrit 37.9, platelet count 231, sodium 138, potassium 4.3, BUN 13, creatinine 0.97, glucose 84, hemoglobin A1c 5.7, troponin less than 0.015, triglycerides 97, cholesterol 205, LDL 139, VLDL 19, HDL 47, TSH 0.829, UDS negative, Covid screening negative. Diagnostic Findings CT of the head, CT angiography of the head and neck, and brain MRI are as described in the history of present illness. Electrocardiogram reveals sinus bradycardia, 56 bpm. Electroencephalogram reveals a normal alpha rhythm, no epileptiform abnormalities. Coding Level of Care Code 13439 Inpt Consult Level 5 Diagnoses CVA (cerebrovascular accident) I63.312 CVA mechanism: thrombosis Precerebral and cerebral artery: middle cerebral artery Laterality of affected vessel: left Seizure-like activity R56.9 (1) CVA (cerebrovascular accident) CVA mechanism: thrombosis Precerebral and cerebral artery: middle cerebral artery Laterality of affected vessel: left Qualified Code(s): I63.312 - Cerebral infarction due to thrombosis of left middle cerebral artery
--- NOTE | 2020-12-22 12:36 | Hospitalist Progress Note ---
Date of Service December 22, 2020 Assessment & Plan (1) CVA (cerebrovascular accident): Large left MCA stroke - Not candidate for therapy as unsure of onset and stroke completed. Known CVA as of - Case reviewed with [facility]- no further therapy- supportive care - Brain MRI reviewed- no acute changes - Appreciate neurology recommendations - swallow screen- passed - ECHO- pending - BP will follow - Keppra dosing decreased to 500 mg BID PO - PT/OT - ASA daily - statin daily - Anticoagulation panel sent, NATASHA, ANCA sent, Sickle cell screening sent [facility] recs- gadolinium enhanced brain MRI in 1 month to ensure stability. (2) Abnormal chest xray: CT scan follow revealed lung nodule - 7mm lung nodule noted- No acute need to pursue biopsy (3) Pulmonary nodule: as above Admission and Anticipated Discharge Date Admission Date: December 21, 2020 Subjective Patient sitting up in the chair this late morning finishing lunch. Normal dexterity and movements with eating observed from doorway. Patient is answering more questions today in an accurate manor than yesterday, however fills in the gaps with words that don't make sense in the sentence. His object recognition was better today. Remains without focal deficits. Overall mild to moderate improvement since yesterday which again questions possibility of post-ictal. The patient does say he feels better than yesterday and exhibits some frustration with his aphasia. Still without much memory recall from yesterday or previous week. Appreciate Neurology recommendations and evaluation. Dispo : remain in house today continue embolic workup with ECHO and telemetry monitoring for today. Review of Systems Review of Systems: REVIEW OF SYSTEMS: Constitutional: No fever, sweats or chills Eyes: No diplopia, no worsening or blurred vision ENT: (+) headache, normal hearing, no trouble swallowing Respiratory: No cough, sputum, dyspnea at rest or on exertion Cardiovascular: No chest pain, tightness or palpitations Abdomen: No pain, nausea, vomiting, diarrhea or constipation Musculoskeletal: No joint pain, calf pain, swelling Neurologic: No weakness, numbness/tingling, or balance problems Psychiatric: No anxiety or depression Skin: No rash or itch Physical Exam Physical Exam: PHYSICAL EXAM: General: awake, alert, no apparent distress Head: Normocephalic, atraumatic ENT: PERRLA, EOMI, no pharyngeal exudate, mucous membranes moist Neuro: A&O x2, short term memory recall could be related to his expressive aphasia, is able to name the objects on his tray including his food, however- when using NIHSS objects and words, he is unable to name any objects or read the words. There is loss in fluidity of his sentences. Muscle tone and bulk is normal, sensation is normal- gets right and left confused today on upper extremities- Yesterday this was lower extremities. This did improve his accuracy when asked to just point his finger up on the arm i was touching him on. Again may be aphasic component. No ataxia, no vision deficits. Chest: equal rise and fall of the chest, no accessory muscle use, no heaves or thrills, Clear to auscultation, on room air, Cardiac: Regular rate and rhythm, S1S2 telemetry reviewed no ectopy or afib, skin warm dry, cap refill <3 seconds, peripheral pulses +2 no JVD, no murmur, no edema GI: NABS x 4 quadrants, soft, nontender to palpation, no rebound, guarding or tenderness : Spontaneously voiding, no pain, no CVA tenderness, Extremities: Normal inspection, no peripheral edema or erythema, calfs nontender to palpation Psych: Normal mood and affect Skin: no rash or erythema Results & Data Results & Data ([facility] Vital Signs (Past 12 Hours) Vital Signs Temp Pulse Pulse Resp BP Pulse Ox 12/22/20 11:41 36.8 C 55 L 19 105/75 99 12/22/20 08:00 54 L 12/22/20 07:14 36.7 C 60 19 124/83 99 12/22/20 03:14 36.7 C 58 L 18 132/74 96 Laboratory Results Abnormal lab results 12/22/20 12/22/20 12/22/20 Range/Units 06:41 06:41 06:41 WBC 4.57 L (4.8-10.8) K/uL RBC 4.30 L (4.7-6.1) M/uL Hgb 12.7 L (14.0-18.0) g/dL Hct 37.9 L (42-52) % Hemoglobin A1c 5.7 H (4.5-5.6) % Cholesterol 205 H (0-200) mg/dl Diagnostic Findings As per HPI no further imaging done today. ECHO pending Medications Administered Home Medications aspirin 325 mg PO DAILY 12/21/20 [History Confirmed 12/21/20] Active Medications Aspirin (Aspirin 81 Mg Ectab) 81 mg PO [facility] Stop: 01/21/21 08:59 Last Admin: 12/22/20 07:36 Dose: 81 mg Documented by: Atorvastatin Calcium (Atorvastatin 40 Mg Tab) [facility] Stop: 01/21/21 08:59 Last Admin: 12/22/20 07:36 Dose: 40 mg Documented by: Enoxaparin Sodium (Enoxaparin Inj 40 Mg/0.4 Ml Syr) 40 [facility] Stop: 01/21/21 08:59 Last Admin: 12/22/20 07:35 Dose: 40 mg Documented by: Sodium Chloride (Nss 1000ml) 1,000 mls @ 100 mls/hr IV .Q10H [facility] Stop: 01/20/21 15:33 Last Admin: 12/22/20 02:47 Dose: 100 mls/hr Documented by: Levetiracetam 500 mg/ Sodium (Chloride) 105 mls @ 440 mls/hr IV Q12 [facility] Stop: 01/21/21 20:59 Miscellaneous Information (Pharmacist Discharge Med Rec Consult) 1 ea N/A UD PRN PRN Reason: Consult Stop: 01/20/21 15:33 Ondansetron HCl (Ondansetron Inj 2 Mg/Ml 2 Ml Vial) 4 mg IV Q6H PRN PRN Reason: Nausea Stop: 01/20/21 15:33 PG Care Time/CCT Total # of Minutes Spent Total Time Spent with Patient: Total time spent is greater than 50% in coordination of care (as documented) at patient's floor/unit and/or counseling patient: Coding Level of Care Code 92270 Subseq Hosp Care Lvl 3 Diagnoses CVA (cerebrovascular accident) I63.312 CVA mechanism: thrombosis Laterality of affected vessel: left Precerebral and cerebral artery: middle cerebral artery Abnormal chest xray R93.89 Pulmonary nodule R91.1 (1) CVA (cerebrovascular accident) CVA mechanism: thrombosis Laterality of affected vessel: left Precerebral and cerebral artery: middle cerebral artery Qualified Code(s): I63.312 - Cerebral infarction due to thrombosis of left middle cerebral artery
--- NOTE | 2020-12-22 18:09 | XCELERA ---
[id number]
[2020-12-22] MEDS ORDERED: levETIRAcetam 500 MG in 0.9 % SODIUM CHLORIDE 100 ML IV SCH (21:00)
[2020-12-23] MEDS ORDERED: levETIRAcetam 500 MG TAB PO SCH
[2020-12-23] MEDS: ATORVASTATIN 40 MG TAB PO SCH (08:03)
[2020-12-23] MEDS: ASPIRIN 81 MG ECTAB PO SCH (08:04)
[2020-12-23] MEDS: ENOXAPARIN INJ 40 MG/0.4 ML SYR SQ SCH (08:05)
[2020-12-23 08:50] LABS: Basophils # (auto) 0.03 K/uL (0-0.2); Basophils % (auto) 0.6 %; Eosinophils % (auto) 3.8 %; Hematocrit (blood only) 36.5 % (42-52); Hemoglobin 12.2 g/dL (14.0-18.0); Immature Granulocytes # (auto) 0.01 K/uL (0.00-0.02); Immature Granulocytes % (auto) 0.2 %; Lymphocytes # (auto) 1.55 K/uL (1.2-3.4); Lymphocytes % (auto) 29.8 %; Mean Corpuscular Hemoglobin 29.7 pg (25-34); Mean Corpuscular Hgb Conc 33.4 g/dL (32-36); Mean Corpuscular Volume 88.8 fL (80-100); Mean Platelet Volume 9.9 fL (7.4-10.4); Monocytes # (auto) 0.29 K/uL (0.11-0.59); Monocytes % (auto) 5.6 %; Neutrophils # (auto) 3.12 K/uL (1.4-6.5); Platelet Count 229 K/uL (130-400); RDW Coefficient of Variation 13.1 % (11.5-14.5); RDW Standard Deviation 42.4 fL (36.4-46.3); Red Blood Count 4.11 M/uL (4.7-6.1)
[2020-12-23 09:44] LABS: BUN Creatinine Ratio 11.8 (10-20); Calcium 8.9 mg/dl (8.5-10.1); Creatinine Clr Calc Pharmacy 96.4 ml/min; Est GFR (African American) 97.1 ml/min; Est GFR (Non-African American) 83.8 ml/min; Potassium 3.5 mmol/L (3.5-5.1)
[2020-12-23] MEDS ORDERED: STROKE PATIENT DISCHARGE STA (14:28)
[2020-12-23] MEDS ORDERED: CONSULT PHARMACY STA (14:35)
--- NOTE | 2020-12-23 14:41 | Emergency Department Note ---
Impression & Plan CVA (cerebrovascular accident) ED Provider Note NAME: JOSE [id number] [place] AGE: 45 SEX: M : 1975 ARRIVES VIA: Ambulance INFORMANT: Patient, EMS ED PROVIDER(S): Abilio Sidhu MD CHIEF COMPLAINT: altered mental status, syncope HPI: This is a 45-year-old male who presents emergency department after being sent in from his custodial. The present is concerned that the patient has a abnormal MRI. The patient was sent for an MRI several weeks ago and this was concerning for a very large stroke. Since that time the patient has been acting very confused and has had multiple syncopal episodes. EMS reports that the patient had an abnormal MRI. He was sent to the emergency department today because of multiple syncopal episodes. The patient upon arrival to the emergency department does not know where he is and does not know what month he is in. He reports no other complaints denies any headaches fevers chills chest pain. ROS: See above HPI for pertinent positives & negatives. A total of 10 systems reviewed and were otherwise negative. PAST MEDICAL HISTORY: See Below PAST SURGICAL HISTORY: See Below FAMILY HISTORY: See Below SOCIAL HISTORY: See Below HOME MEDICATIONS: See Below ALLERGIES: See Below VITALS: See Below PHYSICAL EXAMINATION: VITAL SIGNS - Vital signs and nursing notes were reviewed. GENERAL - 45-year-old male appearing stated age who is in no acute distress. Unsure of where he is or the date SKIN - Without rashes. HEAD - NC/AT. EYES - PERRL with EOMI bilaterally. Sclera anicteric. Palpebral conjunctiva pink and moist with no injection noted. EARS - No deformities of external structures noted on gross examination bilaterally. NOSE - Midline and without cyanosis. No epistaxis or purulent drainage noted. Septum midline without deviation or septal hematoma noted. MOUTH/OROPHARYNX - Without perioral cyanosis. Buccal mucosa pink and moist and without leukoplakia. Tongue midline with equal elevation of palate bilaterally. No tonsillar hypertrophy, erythema, or exudates noted. NECK - Neck with FROM. Supple to palpation. No nuchal rigidity. LUNGS - Chest wall symmetric without accessory muscle use, intercostals retractions, or central cyanosis. Normal vesicular breath sounds CTA B/L. No wheezes, rales, or rhonchi appreciated. CARDIAC - RRR with S1/S2. No murmur, rubs, or gallops appreciated. ABDOMEN - Abdominal contour without pulsations or visible masses. BS normoactive all four quadrants. No tenderness, palpable masses, hepatosplenomegaly, or ascites noted. EXTREMITIES - No clubbing or peripheral cyanosis. No pretibial edema present. +3/5 radial, posterior tibial, and dorsalis pedis pulses palpated throughout. +5/5 strength noted in UE/LE bilaterally. NEUROLOGIC - Cranial nerves II through XII grossly intact. Sensory intact to light touch throughout. Patellar reflexes +2/4. PSYCH - A&Ox1 MEDICAL DECISION MAKING: Patient was seen and evaluated as above in room B7. Review was performed of nursing notes and vital signs. I did review pertinent previous visits and patient history. After obtaining a thorough history and physical examination the above work up was performed. This 45-year-old male who presents emergency department with altered mental status. Using shared medical decision making patient was sent for CTA of the head and neck which was concerning for a very large stroke. The patient was then given magnesium as well as aspirin. I suspect that this has been ongoing for the past several weeks therefore the patient was not a candidate for TPA however I do feel he needs to be admitted to the hospital. I did discuss the case with the hospitalist service who did agree to admit the patient. I will note that the patient does not have an elevation in his white blood cell count and his troponin is also not elevated. An order was placed for continuous cardiac monitoring. The monitor shows a rate of 51 with Normal Sinus rhythm. The patient was evaluated during a period of high volume and high acuity during the global COVID-19 pandemic, and that diagnosis was suspected/considered upon their initial presentation. Their evaluation, treatment and testing was consistent with current guidelines for patients who present with complaints or symptoms that may be related to COVID-19. Patient was seen while provider was wearing PPE. Triage Nursing notes reviewed. Prior medical records reviewed Vital Signs: reviewed and remarkable for no significant abnormalities Differential diagnosis: Infection, dehydration, metabolic abnormality, hypo/hyperglycemia, electrolyte disturbance, anemia, hypoxia, cardiac sources, intracerebral event, toxicologic, neurologic, as well as other pathologies. ER treatment provided: See below Diagnostics interpreted by me: ECG: Sinus bradycardia no ST elevation or depression QTC is 4 1 ventricular rate is [address] elevation or depression EKG is compared to 11/04/2020 no significant changes found Laboratory studies: As stated above and show below. Imaging studies: See below Consultation(s): Internal Medicine Past Med/Surg History Medical History (Updated 12/23/20 @ 14:41 by Abilio Sidhu MD) Abnormal chest xray No pertinent past medical history No pertinent past medical history Surgical History (Updated 12/22/20 @ 11:29 by Darvin Du) No pertinent past surgical history Family History (Updated 12/22/20 @ 11:29 by Darvin Du) Other Unknown family medical history Social History (Updated 12/22/20 @ 11:29 by Darvin Du) Smoking Status: Never smoker Hx Alcohol Use: No Hx Substance Use: No (specifically denied cocaine use or other street drugs ) 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 Beliefs That Will Affect Care: None Current Living Situation: Other Current Living Situation Comment: [facility] facility Feels Safe at Home: Yes Assistive Devices: None Allergies Allergies Allergy/AdvReac Type Severity Reaction Status Date / Time No Known Allergies Allergy Unverified 12/21/20 10:51 Home Meds Home Medications Medication Instructions Recorded Confirmed aspirin 325 mg PO DAILY 12/21/20 12/21/20 Previous Rx's Medication Instructions Recorded aspirin 81 mg PO QAM #30 tab 12/23/20 atorvastatin 40 mg PO QAM #30 tab 12/23/20 levetiracetam 500 mg PO BID #60 tab 12/23/20 Results & Data (ED) Home Medications Current Medication List: was personally reviewed by me Laboratory Data Attestation: I reviewed the patient's lab results. Result diagrams: 12/23/20 08:41 12/23/20 08:41 Lab Results 12/21/20 12/21/20 12/21/20 Range/Units 11:00 11:00 11:00 WBC 5.25 (4.8-10.8) K/uL RBC 4.37 L (4.7-6.1) M/uL Hgb 13.1 L (14.0-18.0) g/dL Hct 38.8 L (42-52) % MCV 88.8 (80-100) fL MCH 30.0 (25-34) pg MCHC 33.8 (32-36) g/dL RDW Std Deviation 42.9 (36.4-46.3) fL RDW Coeff of Willian 13.2 (11.5-14.5) % Plt Count 242 (130-400) K/uL MPV 10.4 (7.4-10.4) fL Immature Gran % (Auto) 0.2 % Neut % (Auto) 60.6 % Lymph % (Auto) 29.7 % [place] % (Auto) 5.5 % Eos % (Auto) 3.2 % Baso % (Auto) 0.8 % Neut # (Auto) 3.18 (1.4-6.5) K/uL Lymph # (Auto) 1.56 (1.2-3.4) K/uL [place] # (Auto) 0.29 (0.11-0.59) K/uL Eos # (Auto) 0.17 (0-0.5) K/uL Baso # (Auto) 0.04 (0-0.2) K/uL Immature Gran # (Auto) 0.01 (0.00-0.02) K/uL PT 10.1 (9.0-12.0) Seconds INR 1.0 (0.9-1.1) APTT 22.8 (21.0-31.0) Seconds PTT Ratio 0.9 Sodium 137 (136-145) mmol/L Potassium 4.2 (3.5-5.1) mmol/L Chloride 103 (98-107) mmol/L Carbon Dioxide 27 (21-32) mmol/L Anion Gap 7.0 (3-11) BUN 11 (7-18) mg/dl Creatinine 1.12 (0.6-1.4) mg/dl Est Cr Clr Drug Dosing 104.1 ml/min Est GFR ( Amer) 90.8 ml/min Est GFR (Non-Af Amer) 78.4 ml/min BUN/Creatinine Ratio 9.6 L (10-20) Glucose 85 (70-99) mg/dl POC Glucose (70-99) mg/dl Calcium 9.5 (8.5-10.1) mg/dl Magnesium 2.1 (1.8-2.4) mg/dl Total Bilirubin 0.7 (0.2-1) mg/dl AST 36 (15-37) U/L ALT 60 (12-78) U/L Alkaline Phosphatase 70 (45-117) U/L Troponin I < 0.015 (0-0.045) ng/ml Total Protein 8.0 (6.4-8.2) gm/dl Albumin 3.9 (3.4-5.0) gm/dl Globulin 4.1 H (2.5-4.0) gm/dl Albumin/Globulin Ratio 0.9 (0.9-2) COVID-19 Eval Order SARS-CoV-2 (PCR) (Negative) 12/21/20 12/21/20 12/21/20 Range/Units 11:00 11:00 11:00 WBC (4.8-10.8) K/uL RBC (4.7-6.1) M/uL Hgb (14.0-18.0) g/dL Hct (42-52) % MCV (80-100) fL MCH (25-34) pg MCHC (32-36) g/dL RDW Std Deviation (36.4-46.3) fL RDW Coeff of Willian (11.5-14.5) % Plt Count (130-400) K/uL MPV (7.4-10.4) fL Immature Gran % (Auto) % Neut % (Auto) % Lymph % (Auto) % [place] % (Auto) % Eos % (Auto) % Baso % (Auto) % Neut # (Auto) (1.4-6.5) K/uL Lymph # (Auto) (1.2-3.4) K/uL [place] # (Auto) (0.11-0.59) K/uL Eos # (Auto) (0-0.5) K/uL Baso # (Auto) (0-0.2) K/uL Immature Gran # (Auto) (0.00-0.02) K/uL PT (9.0-12.0) Seconds INR (0.9-1.1) APTT (21.0-31.0) Seconds PTT Ratio Sodium (136-145) mmol/L Potassium (3.5-5.1) mmol/L Chloride (98-107) mmol/L Carbon Dioxide (21-32) mmol/L Anion Gap (3-11) BUN (7-18) mg/dl Creatinine (0.6-1.4) mg/dl Est Cr Clr Drug Dosing ml/min Est GFR ( Amer) ml/min Est GFR (Non-Af Amer) ml/min BUN/Creatinine Ratio (10-20) Glucose (70-99) mg/dl POC Glucose 102 H (70-99) mg/dl Calcium (8.5-10.1) mg/dl Magnesium (1.8-2.4) mg/dl Total Bilirubin (0.2-1) mg/dl AST (15-37) U/L ALT (12-78) U/L Alkaline Phosphatase (45-117) U/L Troponin I (0-0.045) ng/ml Total Protein (6.4-8.2) gm/dl Albumin (3.4-5.0) gm/dl Globulin (2.5-4.0) gm/dl Albumin/Globulin Ratio (0.9-2) COVID-19 Eval Order Covid19 at [facility] SARS-CoV-2 (PCR) NEGATIVE (Negative) Administered Medications Aspirin (Aspirin 81 Mg Ectab) 81 mg PO QAM [facility] Stop: 01/21/21 08:59 Last Admin: 12/23/20 08:04 Dose: 81 mg Documented by: [id number] Admin: 12/22/20 07:36 Dose: 81 mg Documented by: [id number] Atorvastatin Calcium (Atorvastatin 40 Mg Tab) [facility] [place] Stop: 01/21/21 08:59 Last Admin: 12/23/20 08:03 Dose: 40 mg Documented by: [id number] Admin: 12/22/20 07:36 Dose: 40 mg Documented by: [id number] Enoxaparin Sodium (Enoxaparin Inj 40 Mg/0.4 Ml Syr) 40 mg SQ QAM [facility] Stop: 01/21/21 08:59 Last Admin: 12/23/20 08:05 Dose: 40 mg Documented by: [id number] Admin: 12/22/20 07:35 Dose: 40 mg Documented by: [id number] Levetiracetam (Levetiracetam Soln 500 Mg/5 Ml Udp) 500 mg PO Q12 [facility] Stop: 01/22/21 08:59 Last Admin: 12/23/20 08:04 Dose: 500 mg Documented by: [id number] Discontinued Medications Aspirin (Aspirin Chew 324 Mg) 324 mg PO NOW STA Stop: 12/21/20 12:37 Last Admin: 12/21/20 12:47 Dose: 324 mg Documented by: [id number] Sodium Chloride (Nss 1000ml) 1,000 mls @ 100 mls/hr IV .Q10H [facility] Stop: 01/20/21 15:33 Last Infusion: 12/22/20 22:44 Dose: 0 mls/hr Documented by: [id number] Infusion: 12/22/20 22:28 Dose: 0 mls/hr Documented by: [id number] Admin: 12/22/20 12:45 Dose: 100 mls/hr Documented by: [id number] Infusion: 12/22/20 12:45 Dose: 0 mls/hr Documented by: [id number] Admin: 12/22/20 02:47 Dose: 100 mls/hr Documented by: [id number] Infusion: 12/22/20 02:47 Dose: 100 mls/hr Documented by: [id number] Admin: 12/21/20 17:31 Dose: 100 mls/hr Documented by: [id number] Levetiracetam 1,000 mg/ Sodium (Chloride) 110 mls @ 440 mls/hr IV Q12 [facility] Stop: 01/20/21 20:59 Last Infusion: 12/22/20 07:53 Dose: 0 mls/hr Documented by: [id number] Admin: 12/22/20 07:35 Dose: 440 mls/hr Documented by: [id number] Infusion: 12/21/20 20:04 Dose: 0 mls/hr Documented by: [id number] Admin: 12/21/20 19:38 Dose: 440 mls/hr Documented by: [id number] Levetiracetam 500 mg/ Sodium (Chloride) 105 mls @ 440 mls/hr IV Q12 [facility] Stop: 01/21/21 20:59 Last Infusion: 12/22/20 22:01 Dose: 0 mls/hr Documented by: [id number] Admin: 12/22/20 20:57 Dose: 440 mls/hr Documented by: [id number] Ioversol (Optiray 350 500ml) 120 ml IV ONCE ONE Stop: 12/21/20 12:22 Last Admin: 12/21/20 12:22 Dose: 120 ml Documented by: [id number] Imaging Data Attestation: I personally reviewed and interpreted this imaging study as follows: Radiologist's Impression: Chest X-Ray 12/21/20 10:39 XR chest 1V portable CLINICAL HISTORY: Stroke Like Symptoms COMPARISON STUDY: No previous studies for comparison. FINDINGS: Lung volumes are normal. Note is made of a 3.4 cm left suprahilar density There is no pneumothorax or pleural effusion. Cardiac size is normal. Mediastinal contours are normal. There is no evidence for pulmonary edema. IMPRESSION: 3.4 cm left suprahilar density. This likely reflects normal pulmonary vessels. However, nonemergent chest CT is recommended to exclude the less likely possibility of an underlying pulmonary lesion. ACT 112: Positive. There are findings on this exam that require communication between the performing entity and the patient following Patient Test Result Information Act ([place] Act 112) guidelines. Electronically signed by: Kvng Morales M.D. 12/21/2020 11:[address] 12/21/20 10:[address] OF THE BRAIN; CT ANGIOGRAM OF THE BRAIN; CT ANGIOGRAM OF THE NECK CLINICAL HISTORY: Strokelike symptoms. COMPARISON STUDY: CT of the brain dated 11/04/2020. TECHNIQUE: Unenhanced axial CT scan of the brain is performed. Subsequently, following the IV administration of 120 of Optiray 350, CT angiogram of the head and neck was performed from the aortic arch to the vertex. Images are reviewed in the axial, sagittal, and coronal planes. 3-D MIPS images are created and assessed. IV contrast was administered without complication. All measurements were calculated based on NASCET criteria. A dose lowering technique was utilized adhering to the principles of ALARA. CT DOSE: 1109.62 mGy.cm FINDINGS: Brain parenchyma: There is a large subacute infarct identified in the left MCA territory with mild surrounding edema, predominantly involving the temporal lobe. Focal hyperdense thrombus is suggested within a branch of the left MCA on unenhanced axial image #12. No hemorrhage or midline shift is identified. No additional foci of ischemia are identified by CT criteria. There is no evidence of enhancing mass lesion on the angiogram phase images. The ventricles, sulci, and cisterns are normal in configuration. No extra-axial fluid collection is seen. Thoracic aorta: Visualized portions of the thoracic aorta are normal in caliber. The aortic arch demonstrates standard 3-vessel anatomy. Right carotid arterial system: The right common carotid artery is widely patent, as are the right internal and external carotid arteries. Left carotid arterial system: The left common carotid artery is widely patent, as are the left internal and external carotid arteries. Vertebral arteries: The vertebral arteries are patent bilaterally noting a right-sided dominance. Subclavian arteries: Widely patent bilaterally. Intracranial vasculature: There are large bilateral posterior communicating arteries. The internal carotid arteries are patent at the skull base, as are the bilateral anterior and right middle cerebral arteries the proximal right middle cerebral arteries patent. 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 The remaining branches of the left middle cervical arteries are patent. The vertebrobasilar system and posterior cerebral arteries are widely patent. The right vertebral artery is dominant. The left vertebral artery is diminutive. No aneurysm is seen. Jugular veins: Patent bilaterally. Dural sinuses: Patent. Lung apices: Partially visualized upper lobe lung parenchyma appears clear. Soft tissues: The visualized pharyngeal soft tissues are normal in appearance noting angiographic phase technique. The oropharyngeal airway appears widely patent. The salivary and thyroid glands are normal in appearance. No cervical lymphadenopathy is seen. Skeletal structures: The calvarium appears intact. The cervical spine is within normal limits. No lytic or blastic lesion is seen. Sinuses and mastoids: There is trace mucosal thickening within the ethmoid sinuses. The remaining paranasal sinuses are clear. The mastoid air cells are well pneumatized. Cerumen is noted in the external auditory canals. IMPRESSION: 1. There is a large subacute left MCA territory infarct as above, predominantly involving the temporal lobe. 2. No hemorrhage or midline shift is identified. 3. No additional foci of acute ischemia are identified by CT criteria. 4. There is thrombosis of a large branch of the left MCA in the left temporal lobe along the sylvian fissure. 5. Otherwise unremarkable CT angiogram of the brain. 6. Unremarkable CT angiogram of the neck. Findings were discussed with Dr. Sidhu in the emergency department at the time of interpretation. ACT 112: Negative or not required by law. Electronically signed by: Scott Ron M.D. 12/21/2020 12:54 PM Head CTA 12/21/20 10:[address] OF THE BRAIN; CT ANGIOGRAM OF THE BRAIN; CT ANGIOGRAM OF THE NECK CLINICAL HISTORY: Strokelike symptoms. COMPARISON STUDY: CT of the brain dated 11/04/2020. TECHNIQUE: Unenhanced axial CT scan of the brain is performed. Subsequently, following the IV administration of 120 of Optiray 350, CT angiogram of the head and neck was performed from the aortic arch to the vertex. Images are reviewed in the axial, sagittal, and coronal planes. 3-D MIPS images are created and assessed. IV contrast was administered without complication. All measurements were calculated based on NASCET criteria. A dose lowering technique was utilized adhering to the principles of ALARA. CT DOSE: 1109.62 mGy.cm FINDINGS: Brain parenchyma: There is a large subacute infarct identified in the left MCA territory with mild surrounding edema, predominantly involving the temporal lobe. Focal hyperdense thrombus is suggested within a branch of the left MCA on unenhanced axial image #12. No hemorrhage or midline shift is identified. No additional foci of ischemia are identified by CT criteria. There is no evidence of enhancing mass lesion on the angiogram phase images. The ventricles, sulci, and cisterns are normal in configuration. No extra-axial fluid collection is seen. Thoracic aorta: Visualized portions of the thoracic aorta are normal in caliber. The aortic arch demonstrates standard 3-vessel anatomy. Right carotid arterial system: The right common carotid artery is widely patent, as are the right internal and external carotid arteries. Left carotid arterial system: The left common carotid artery is widely patent, as are the left internal and external carotid arteries. Vertebral arteries: The vertebral arteries are patent bilaterally noting a right-sided dominance. Subclavian arteries: Widely patent bilaterally. Intracranial vasculature: There are large bilateral posterior communicating arteries. The internal carotid arteries are patent at the skull base, as are the bilateral anterior and right middle cerebral arteries the proximal right middle cerebral arteries patent. 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 The remaining branches of the left middle cervical arteries are patent. The vertebrobasilar system and posterior cerebral arteries are widely patent. The right vertebral artery is dominant. The left vertebral artery is diminutive. No aneurysm is seen. Jugular veins: Patent bilaterally. Dural sinuses: Patent. Lung apices: Partially visualized upper lobe lung parenchyma appears clear. Soft tissues: The visualized pharyngeal soft tissues are normal in appearance noting angiographic phase technique. The oropharyngeal airway appears widely patent. The salivary and thyroid glands are normal in appearance. No cervical lymphadenopathy is seen. Skeletal structures: The calvarium appears intact. The cervical spine is within normal limits. No lytic or blastic lesion is seen. Sinuses and mastoids: There is trace mucosal thickening within the ethmoid sinuses. The remaining paranasal sinuses are clear. The mastoid air cells are well pneumatized. Cerumen is noted in the external auditory canals. IMPRESSION: 1. There is a large subacute left MCA territory infarct as above, predominantly involving the temporal lobe. 2. No hemorrhage or midline shift is identified. 3. No additional foci of acute ischemia are identified by CT criteria. 4. There is thrombosis of a large branch of the left MCA in the left temporal lobe along the sylvian fissure. 5. Otherwise unremarkable CT angiogram of the brain. 6. Unremarkable CT angiogram of the neck. Findings were discussed with Dr. Sidhu in the emergency department at the time of interpretation. ACT 112: Negative or not required by law. Electronically signed by: Scott Ron M.D. 12/21/2020 12:54 PM Neck CTA 12/21/20 10:[address] OF THE BRAIN; CT ANGIOGRAM OF THE BRAIN; CT ANGIOGRAM OF THE NECK CLINICAL HISTORY: Strokelike symptoms. COMPARISON STUDY: CT of the brain dated 11/04/2020. TECHNIQUE: Unenhanced axial CT scan of the brain is performed. Subsequently, following the IV administration of 120 of Optiray 350, CT angiogram of the head and neck was performed from the aortic arch to the vertex. Images are reviewed in the axial, sagittal, and coronal planes. 3-D MIPS images are created and assessed. IV contrast was administered without complication. All measurements were calculated based on NASCET criteria. A dose lowering technique was utilized adhering to the principles of ALARA. CT DOSE: 1109.62 mGy.cm FINDINGS: Brain parenchyma: There is a large subacute infarct identified in the left MCA territory with mild surrounding edema, predominantly involving the temporal lobe. Focal hyperdense thrombus is suggested within a branch of the left MCA on unenhanced axial image #12. No hemorrhage or midline shift is identified. No additional foci of ischemia are identified by CT criteria. There is no evidence of enhancing mass lesion on the angiogram phase images. The ventricles, sulci, and cisterns are normal in configuration. No extra-axial fluid collection is seen. Thoracic aorta: Visualized portions of the thoracic aorta are normal in caliber. The aortic arch demonstrates standard 3-vessel anatomy. Right carotid arterial system: The right common carotid artery is widely patent, as are the right internal and external carotid arteries. Left carotid arterial system: The left common carotid artery is widely patent, as are the left internal and external carotid arteries. Vertebral arteries: The vertebral arteries are patent bilaterally noting a right -sided dominance. Subclavian arteries: Widely patent bilaterally. Intracranial vasculature: There are large bilateral posterior communicating arteries. The internal carotid arteries are patent at the skull base, as are the bilateral anterior and right middle cerebral arteries the proximal right middle cerebral arteries patent. 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 The remaining branches of the left middle cervical arteries are patent. The vertebrobasilar system and posterior cerebral arteries are widely patent. The right vertebral artery is dominant. The left vertebral artery is diminutive. No aneurysm is seen. Jugular veins: Patent bilaterally. Dural sinuses: Patent. Lung apices: Partially visualized upper lobe lung parenchyma appears clear. Soft tissues: The visualized pharyngeal soft tissues are normal in appearance noting angiographic phase technique. The oropharyngeal airway appears widely patent. The salivary and thyroid glands are normal in appearance. No cervical lymphadenopathy is seen. Skeletal structures: The calvarium appears intact. The cervical spine is within normal limits. No lytic or blastic lesion is seen. Sinuses and mastoids: There is trace mucosal thickening within the ethmoid sinuses. The remaining paranasal sinuses are clear. The mastoid air cells are well pneumatized. Cerumen is noted in the external auditory canals. IMPRESSION: 1. There is a large subacute left MCA territory infarct as above, predominantly involving the temporal lobe. 2. No hemorrhage or midline shift is identified. 3. No additional foci of acute ischemia are identified by CT criteria. 4. There is thrombosis of a large branch of the left MCA in the left temporal lobe along the sylvian fissure. 5. Otherwise unremarkable CT angiogram of the brain. 6. Unremarkable CT angiogram of the neck. Findings were discussed with Dr. Sidhu in the emergency department at the time of interpretation. ACT 112: Negative or not required by law. Electronically signed by: Scott Ron M.D. 12/21/2020 12:54 PM Discharge Plan Visit Data Chief Complaint: Syncope ED Provider: Abilio Sidhu Discharge Problem: CVA (cerebrovascular accident) Patient Disposition: Admitted As Inpatient Discharge Instructions Interventions: ED Discharge Assessment Last Done: 12/21/20 15:02 Discharge Problem: CVA (cerebrovascular accident) Qualifiers: CVA mechanism: unspecified Qualified Code(s): I63.9 - Cerebral infarction, unspecified
--- NOTE | 2020-12-23 17:22 | Discharge Summary ---
Date of Service December 23, 2020 Principal Diagnosis Left MCA stroke Seizure-like activity Discharge Exam The patient appeared well still having fluency of speech issues otherwise exam is unremarkable Vital signs as documented. Lungs are clear to auscultation and appear unlabored Cardiac exam, Rhythm is regular.. No murmurs, rubs or gallops. Abdominal exam reveals normal bowel sounds, soft non tender, no masses Extremities are nonedematous and both pedal pulses are normal. Neurologic exam is alert and oriented, no focal loss of strength or sensation exception of fluency of speech issues Skin is without bruises or rashes Psychologically is without concerns for anxiety or depression. Discharge Data Allergies Allergy/AdvReac Type Severity Reaction Status Date / Time No Known Allergies Allergy Unverified 12/21/20 10:51 Consultations 12/21/20 12:36 ED Decision to Admit Stat 12/21/20 15:34 Consult Neurology Routine Ordered Studies 12/21/20 10:39 CT angio head w con Stat CT angio neck with con Stat CT head/brain wo con Stat 12/21/20 15:34 CT chest diagnostic wo con Routine MR brain wo con Routine Hospital Course (1) CVA (cerebrovascular accident): Large left MCA stroke - Not candidate for therapy as unsure of onset and stroke completed. Known CVA as of - Case reviewed with [facility] [place]- no further therapy- supportive care - Brain MRI IMPRESSION: 1. No evidence of restricted diffusion to suggest acute ischemia/infarct. 2. Large heterogeneous area of altered T1 and T2 signal is seen within left frontal and occipital lobe with associated cortical atrophy and curvilinear areas of increased T1 signal likely representing sequela from prior/recent infarct/hemorrhage. Neoplastic etiology/mass lesion is less likely due to absence of the mass effect, however if there is clinical concern for metastatic/neoplastic lesion, follow-up evaluation might be considered - Appreciate neurology recommendations aspirin atorvastatin - swallow screen- passed - ECHO-no atrial septal defect seen preserved ejection fraction no regional wall motion abnormalities - - Keppra dosing decreased to 500 mg BID PO - PT/OT not recommend any additional therapy required - Anticoagulation panel sent, NATASHA, ANCA sent, Sickle cell screening sent Neuro recs-recommend follow-up with neurology and gadolinium enhanced brain MRI in 1 month to ensure stability. (2) Abnormal chest xray: CT scan follow revealed lung nodule - 7mm lung nodule noted- No acute need to pursue biopsy lung nodule clinic (3) Pulmonary nodule: as above Total Time Total Time Spent Total Time Spent (In Minutes): It required greater than 30 minutes to prepare this patient for discharge Discharge Plan Discharge Items [facility] Disposition[facility] Reason For Visit: L MCA TERRITORY STROKE; QUESTION SEIZURE Discharge Diagnosis: Left mca territory stroke questionable seizure Activity: Resume your previous activity Non-emergency contact: Primary Care Provider and Neurologist Call non-emergency contact if: your symptoms worsen and you have a fever Follow-up/Referrals: Williams Pandya MD [Physician[facility] - Diet: Regular Addtl Attending Provider Instructions: Risk Factors for Stroke: You can reduce your chances of stroke by working with your medical provider to adopt a healthy lifestyle. Some specific ways to lower your chance of stroke are: * If you are a smoker, now is the time to stop smoking cigarettes * If you are diabetic, improve the control of your blood sugars * Avoid excessive amounts of alcohol * Control high blood pressure * Lose weight if you are overweight * Be sure to lead an active lifestyle * Eat a healthy diet low in salt, cholesterol and fat You should know about other risk factors for stroke that you are unable to control. These include: * Age 55 years or older * Male gender * Certain racial groups: , or / * Family History of Stroke, Mini stroke or Heart Attack * Sickle Cell Disease Follow Up: It is important for you to keep your follow up appointments with your medical provider. Who to Call and When: Medical Emergencies: Call 911 immediately if you experience any of the following warning signs and symptoms of Stroke: * Sudden numbness or weakness of the face, arm or leg, especially on one side of the body * Sudden confusion, trouble speaking or understanding * Sudden trouble seeing in one or both eyes * Sudden trouble walking, dizziness, loss of balance or coordination * Sudden severe headache with no cause Do not delay calling 911 if you experience any warning signs or symptoms of a stroke. Delay in seeking medical attention may affect what treatments can be given to you. you have been started on a cholesterol lowering medication please have appropriate blood work for follow up . Pending Studies at Discharge: Yes Studies:: hypercoagulable serology Stand-Alone Forms: My [facility] Skilled Items Patient informed of condition?: Yes Discharge Level of Care: Other Communicable Disease: No Discharge Prognosis: Stable Lines: None Urinary Catheter: Yes Medications and DC Order Prescriptions: New atorvastatin 40 mg Tablet 40 mg PO QAM Qty: 30 RF: 5 aspirin 81 mg Tablet,Delayed Release (Dr/Ec) 81 mg PO QAM Qty: 30 RF: 5 levetiracetam 500 mg tablet 500 mg PO BID Qty: 60 RF: 5 Discontinued aspirin 325 mg Tablet 325 mg PO DAILY RF: 0 Discharge Orders: Discharge Order (Routine); Ordered 12/23/20 Ordered By: Danyel Flores Admission Data Admit Date/Time: 12/21/20 14:31 Attending Provider: Danyel Flores Admit Provider: Darvin Du Primary Care Provider: Sanjuana GREWAL Other Providers: Darvin Du ; Williams Pandya Other Interventions: Discharge Summary Assessment (RN) Last Done: 12/23/20 15:30 Coding Level of Care Code D/C Day Management >30 mins Diagnoses CVA (cerebrovascular accident) I63.9 CVA mechanism: unspecified Abnormal chest xray R93.89 Pulmonary nodule R91.1
[2020-12-25 14:01] LABS: ANCA Screen Negative (Negative); Anti Cardiolipin Ab IgG <2.0 GPL-U/mL; Anti Cardiolipin Ab IgM <2.0 MPL-U/mL; Anti Nuclear Antibody Screen NEGATIVE (NEGATIVE)
[2020-12-26 07:40] LABS: Anti-Thrombin III Activity 117 % normal (80-135); B2 Glycoprotein IgG <2.0 U/mL (<20.0); B2 Glycoprotein IgM <2.0 U/mL (<20.0); PTT LA Screen 34 sec (<=40); Protein S Antigen Free 68 % normal (57-171); Protein S Antigen Total 93 % normal (70-140)
--- NOTE | 2020-12-31 13:14 | Coding Query ---
CODING QUERY To promote full compliance with coding requirements relating to patient care, provider participation is requested in all cases of manuscript reader uncertainty. Please assist us with the question(s) below: Coding Question(s): 1. The Discharge Summary documents Left MCA Stroke and the Neurology Consultation documents, "Seizure-like activity: Chronic appearing left MCA/perisylvian infarct with evidence of prior hemorrhage, laminar necrosis on noncontrast brain MRI. No associated mass- effect, underlying neoplasm considered less likely. Does have evidence of thrombosis of a large branch of the left MCA in the left temporal lobe along the sylvian fissure. CT angiography of the head and neck are otherwise unremarkable. Underlying stroke etiology unclear although cardioembolism seems probable. Coagulopathy not excluded". Please specify below, in your clinical opinion, regarding the Left MCA Stroke. (xx ) Likely Acute Left MCA Stroke ( ) Likely Chronic Left MCA Stroke ( ) Other: Please Specify 2. The Neuropathy Consultation documents, "Coagulopathy not excluded", and there is no further documentation of Coagulopathy. Please specify below, in your clinical opinion, regarding Coagulopathy. ( ) Likely Coagulopathy ( ) Coagulopathy Ruled-Out ( xx) Other: Please Specify_tests pending at discharge cannot determine 3. Discharge Summary documents Seizure-like activity and the Neurology Consult documents, "Furthermore, it is unclear if this patient has been having seizures. Events unwitnessed. Normal EEG. However, does have a relatively large left perisylvian infarct which could increase risk for seizure disorder, potentially focal onset with secondary generalization. Patient does not appear to have a Timothy's paralysis although he does exhibit a mild to moderate mixed aphasia which could be either chronic or postictal. If his speech difficulty is postictal I would expect some improvement over the next 24 to 48 hours.". Please specify below in your clinical opinion, regarding Seizure. ( ) Seizure-like activity is possible Seizure Disorder - potentially focal onset with secondary generalization. Please Specify further below: ( ) this is likely due to the Stroke ( ) this is Not likely due to the Stroke ( ) Seizure -like activity is possible Seizure. Please Specify further below: ( ) this is likely due to the Stroke ( ) this is Not likely due to the Stroke ( ) Seizure-like activity is Not Seizure. Please Specify further below: ( ) this is likely due to the Stroke ( ) this is Not likely due to the Stroke 4. The Neuropathy Consultation documents, "he does exhibit a mild to moderate mixed aphasia which could be either chronic or postictal. If his speech difficulty is postictal I would expect some improvement over the next 24 to 48 hours.", and there is no further documentation of Aphasia. Please specify below, in your clinical opinion, regarding Coagulopathy. ( ) Likely Aphasia due to Stroke ( ) Likely Aphasia due to Other: Please Specify ( ) Aphasia Ruled-Out ( ) Other: Please Specify Physician's Response(s): Thank you Isabelle Teague Principal Diagnosis: "that condition established after study, to be chiefly responsible for occasioning the admission of the patient to the hospital for care." Co-Existing Principal Diagnosis: "when two or more diagnoses equally meet the criteria for principal diagnosis as determined by the circumstances of admission, diagnostic work up, and/or therapy provided, and the Alphabetic Index, Tabular List, or another coding guideline does not provide sequencing direction, any one of the diagnoses may be sequenced first." "When the physician has documented what appears to be a current diagnosis in the body of the record, but has not included the diagnosis in the final diagnostic statement, the physician should be asked whether the diagnosis should be added." (Source Coding [facility] 2 QTR90. p3-4) JUAN
== END 2020-12-23 18:16 | DRG 66 ==
LOC: ED 10:25 → SUATTDRO 14:31 → 2S 14:31 → 2W 12-22 21:27